=== PATIENT | female | born 1990 | race Caucasian/White ===

== ENCOUNTER 2018-07-05 18:54 | Inpatient (IN) | payer MEDICAID ==
[~2018-07-05] VITALS: Ht 157.5 cm; Wt 77.1 kg
[2018-07-05 18:54] VITALS: BP 149/110
--- NOTE | 2018-07-05 18:56 | NUR ---
PT WC'D TO BED 7
--- NOTE | 2018-07-05 19:14 | NUR ---
Patient being evaluated by physician at bedside.
--- NOTE | 2018-07-05 19:15 | NUR ---
PT C/O NVD SINCE 1400 AFTER EATING LETTUCE, DENIES CP SOB OR OTHER SYMPTOMS. DIAPHORETIC AND SAYS SHE FEELS REALLY WEAK. ABD PAIN 7/10 ALL OVER. BOWEL SOUNDS HYPERACTIVE. HX---NONE
--- NOTE | 2018-07-05 19:17 | NUR ---
MOVED TO ER BED 1
[2018-07-05] MEDS ORDERED: KETOROLAC 30 MG/ML VIAL IVP ONE (19:20)
[2018-07-05] MEDS ORDERED: NACL 0.9% 1,000 ML IV ONE ×2 (19:20→21:35)
[2018-07-05] MEDS ORDERED: ONDANSETRON 4 MG/2 ML VIAL IVP ONE ×2 (19:20→22:10)
--- NOTE | 2018-07-05 19:20 | NUR ---
PT PROVIDED W/ BEDSIDE COMMODE, AND TOILETRIES, PT AMBULATORY EVEN STEADY GAIT, AT BEDSIDE.
[2018-07-05 19:43] LABS: HEMATOCRIT 47.2 % (36-48); HEMOGLOBIN 15.2 g/dL (12.0-16.0); MEAN CORPUSCULAR HEMOGLOBIN 26 pg (27-31); MEAN CORPUSCULAR HGB CONC 32 g/dL (33-37); PLATELET COUNT (AUTO) 383 K/uL (140-450); RED CELL DISTRIBUTION WIDTH 15.6 % (11.6-13.7)
[2018-07-05 19:58] LABS: ALBUMIN 4.9 g/dL (3.4-5.0); CARBON DIOXIDE 17.8 mmol/L (21-32); POTASSIUM 3.8 mmol/L (3.5-5.1); TOTAL BILIRUBIN 0.7 mg/dL (0.0-1.0)
[2018-07-05 20:06] LABS: LYMPHOCYTES % (MANUAL) 4 % (20-46); MONOCYTES % (MANUAL) 3 % (5-12)
[2018-07-05] MEDS ORDERED: LEVOFLOXACIN 750 MG/D5W PREMIX 150 ML IV ONE (20:15)
[2018-07-05] MEDS ORDERED: NACL 0.9% 1,000 ML IV SCH (20:15)
--- NOTE | 2018-07-05 21:08 | NUR ---
IVF/IVPB MEDS GIVEN-NADR AT THIS TIME. STOOL SAMPLES SENT TO LAB
--- NOTE | 2018-07-05 21:26 | NUR ---
PT POSITIONED TO COMFORT IN BED, PROVIDED W/ ICE CHIPS, PT STATES SHE IS UNABLE TO URINATE AT THIS TIME, WILL FOLLOW UP.
--- NOTE | 2018-07-05 21:30 | NUR ---
DR GREER AT BEDSIDE, REEVALUATING PT.
--- NOTE | 2018-07-05 21:37 | NUR ---
PT TO BEDSIDE COMMODE TO PROVIDE URINE SAMPLE
[2018-07-05] MEDS ORDERED: ONDANSETRON 4 MG/2 ML VIAL IM/IVP PRN (21:45)
[2018-07-05] MEDS ORDERED: ZOLPIDEM 5 MG TAB PO PRN (21:45)
[2018-07-05] MEDS ORDERED: LORazepam 0.5 MG TAB PO PRN (21:45)
[2018-07-05] MEDS ORDERED: ACETAMINOPHEN 325 MG TAB PO PRN (21:45)
[2018-07-05] MEDS ORDERED: HYDROcodone/APAP 7.5/325 MG 1 TAB PO PRN (21:45)
[2018-07-05] MEDS ORDERED: DOCUSATE SODIUM 100 MG GELCAP PO PRN (21:45)
[2018-07-05 22:20] VITALS: BP 144/93
--- NOTE | 2018-07-05 22:20 | NUR ---
PT ARRIVED ON UNIT VIA RMAR LIN WITH ER NURSE. PT IN STABLE CONDITION. PT ABLE TO AMBULATE FROM GURNEY TO BED. IV ACCESS IN L FA 22G WITH IVF RUNNING PER MD ORDERS. IV IS PATENT AN INTACT. PT IS AAOX4. PT IS ON RA RESPIRATION ARE EVEN AND UNLABORED. PT SKIN IS INTACT. PT CURRENTLY HAVING NO NAUSEA, VOMITING OR DIARRHEA. PT HAS NO C/O PAIN AT THIS TIME. ORIENTED PT TO ROOM AND USE OF CALL LIGHT. MRSA SWAB COLLECTED. BED IS LOCKED, LOW POSITION WITH SIDE RAILS UP X2. CALL LIGHT IS WITHIN REACH. WILL CONTINUE TO MONITOR PT.
--- NOTE | 2018-07-05 22:25 | NUR ---
Patient will be admitted to care of DR SAPP. Admited to [facility]. Will go to [id number]. Belongings list completed. Report to PRICE WALKER .
[2018-07-05] MEDS: NACL 0.9% 1,000 ML IV SCH (22:30)
--- NOTE | 2018-07-05 22:44 | NUR ---
DR SAMUELS AT BEDSIDE SPEAKING AND ASSESSING PT.
[2018-07-05 23:02] LABS: APPEARANCE,URINE CLEAR (CLEAR); BILIRUBIN,URINE SMALL (NEGATIVE); BLOOD, URINE NEGATIVE (NEGATIVE); COLOR,URINE YELLOW (YELLOW); LEUKOCYTE ESTERASE ,URINE NEGATIVE (NEGATIVE); NITRITE, URINE NEGATIVE (NEGATIVE); PH,URINE 5.5 (5.0-9.0); UGLUCOSE NEGATIVE (NEGATIVE)
[2018-07-05 23:03] LABS: BARBITURATE, URINE NEG. ng/ml (NEG <=200); BENZODIAZEPINE, URINE NEG. ng/mL (NEG <=200); CANNABINOID, URINE POS. ng/mL (NEG <=50); COCAINE, URINE NEG. ng/mL (NEG <=300); OPIATE, URINE NEG. ng/mL (NEG <=2000); PHENCYCLIDINE SCREEN,URINE NEG. ng/mL (NEG <=25)
[2018-07-05 23:04] LABS: PROTHROMBIN TIME 10.4 secs (10.8-13.4)
[2018-07-05 23:17] LABS: FREE T4 (FREE THYROXINE) 1.07 ng/dL (0.76-1.46); MAGNESIUM 1.4 mg/dL (1.8-2.4); PHOSPHORUS 3.6 mg/dL (2.5-4.9); THYROID STIMULATING HORMONE 0.65 uIU/mL (0.34-3.74)
[2018-07-05] MEDS ORDERED: cefTRIAXone 1,000 MG VIAL ONE (23:19)
--- NOTE | 2018-07-05 23:22 | NUR ---
ADMINISTERED SCHEDULED MEDICATION. PT VOMITED 600ML. ZOFRAN GIVEN. PT TOLERATED WELL. WILL CONTINUE TO MONITOR.
[2018-07-06] VITALS: BP 143/87
--- NOTE | 2018-07-06 00:50 | NUR ---
PT C/O ABDOMINAL PAIN, NORCO GIVEN. PT AMBULATED TO BATHROOM. PT HAD DIARRHEA X2. PT NOW BACK IN BED IN BED. NO S/SX OF DISTRESS. WILL CONTINUE TO MONITOR.
--- NOTE | 2018-07-06 03:10 | NUR ---
PT ASLEEP IN BED. NO SIGNS OR SYMPTOMS OF DISTRESS. WILL CONTINUE TO MONITOR.
--- NOTE | 2018-07-06 04:43 | NUR ---
ADMINISTERED SCHEDULED MEDICATION. PT TOLERATING WELL. NO SIGNS OR SYMPTOMS OF DISTRESS. WILL CONTINUE TO MONITOR.
[2018-07-06] MEDS ORDERED: metroNIDAZOLE 500 MG/NS PREMIX 100 ML IV SCH (05:00)
--- NOTE | 2018-07-06 07:10 | NUR ---
ENDORSED PT TO DAY SHIFT NURSE FOR CONTINUITY OF CARE. PT IN STABLE CONDITION.
[2018-07-06 08:00] VITALS: BP 142/89
[2018-07-06] MEDS ORDERED: MAG SULF 2000 MG/WATER PREMIX 100 ML IV SCH (08:00)
--- NOTE | 2018-07-06 08:01 | NUR ---
PATIENT WAS AWAKE, ALERT. RESPIRATION EVEN, UNLABOR ON ROOM AIR. SKIN DRY AND WARM. IV PATENT AND INTACT. DENIED PAIN, N/V AT THIS TIME. PLAN OF CARE WAS DISCUSSED WITH PATIENT. BED AT LOW POSITION, SIDE RAILS UP. CALL LIGHT WITHIN REACH
[2018-07-06 08:12] LABS: HEMATOCRIT 38.3 % (36-48); HEMOGLOBIN 12.4 g/dL (12.0-16.0); MEAN CORPUSCULAR HEMOGLOBIN 26 pg (27-31); MEAN CORPUSCULAR HGB CONC 32 g/dL (33-37); MEAN CORPUSCULAR VOLUME 80.3 fL (80-94); PLATELET COUNT (AUTO) 254 K/uL (140-450); RED BLOOD CELL COUNT(AUTO) 4.77 MIL/uL (4.20-5.40); RED CELL DISTRIBUTION WIDTH 15.9 % (11.6-13.7); WHITE BLOOD COUNT (AUTO) 6.7 K/uL (4.8-10.8)
[2018-07-06] MEDS: NACL 0.9% 1,000 ML IV SCH (08:41)
[2018-07-06 08:57] LABS: ANION GAP 14.8 (8-16); CARBON DIOXIDE 22.8 mmol/L (21-32); CREATININE 0.7 mg/dL (0.6-1.3); MAGNESIUM 1.5 mg/dL (1.8-2.4); PHOSPHORUS 5.1 mg/dL (2.5-4.9); POTASSIUM 3.6 mmol/L (3.5-5.1)
[2018-07-06 08:58] LABS: BASOPHILS % (MANUAL) 0 % (0-2); EOSINOPHILS % (MANUAL) 0 % (0-4); LYMPHOCYTES % (MANUAL) 10 % (20-46); MONOCYTES % (MANUAL) 7 % (5-12)
[2018-07-06] MEDS ORDERED: LACTOBACILLUS RHAMNOSUS GG 1 EACH CAP PO SCH (09:00)
[2018-07-06 09:10] LABS: CHOL/HDL RATIO 2.7 (1-4.5)
[2018-07-06] MEDS ORDERED: LACT10CA PO (10:04)
[2018-07-06] MEDS ORDERED: ONDA4TAB PO (10:04)
[2018-07-06] MEDS ORDERED: AMOX-1000 PO (10:04)
--- NOTE | 2018-07-06 10:22 | NUR ---
PATIENT REQUESTED TO LEAVE AMA, STATED THAT "I DON'T FEEL LIKE I NEED TO STAY HERE ANY LONGER". DR. IVEY WAS MADE AWARE. RISKS OF LEAVING AMA WAS EXPLAINED TO PATIENT. PATIENT VERBALIZED UNDERSTANDING. FAMILY IS AT BEDSIDE Addendum: 07/06/18 at 1035 by Kristine Felipe RN DR. IVEY WAS AT BEDSIDE. AMA FORM WAS SIGNED BY PATIENT.
--- NOTE | 2018-07-06 10:25 | NUR ---
PRESCRIPTION WAS GIVEN AND EXPLAINED TO PATIENT. PATIENT VERBALIZED UNDERSTANDING
--- NOTE | 2018-07-06 10:30 | NUR ---
IV WAS REMOVED, CATHETER INTACT. NO ACTIVE BLEEDING SEEN. PATIENT TOLERATED WELL
[2018-07-08 06:25] LABS: T4 (THYROXINE) 6.8 ug/dL (4.5-12.0)
== END 2018-07-06 11:12 | disposition left against medical advice (07) | DRG 720 ==
LOC: MED 18:54 → MTU 21:46
PROVIDERS: ADMIT General Practice; ATTEND General Practice
DX: A41.9 Sepsis, unspecified organism (principal); N17.0 Acute kidney failure with tubular necrosis; I47.1 Supraventricular tachycardia; A04.9 Bacterial intestinal infection, unspecified; K52.9 Noninfective gastroenteritis and colitis, unspecified; E86.0 Dehydration; E83.39 Other disorders of phosphorus metabolism; E83.42 Hypomagnesemia; E66.9 Obesity, unspecified; Z68.31 Body mass index [BMI] 31.0-31.9, adult; F12.90 Cannabis use, unspecified, uncomplicated; Z79.899 Other long term (current) drug therapy
CPT/HCPCS: 36415; 71045; 80048; 80053; 80305; 81003; 82150; 83036; 83605; 83690; 83735; 83880; 84100; 84436; 84439; 84443; 84479; 84484; 85025; 85610; 85730; 87040; 87045; 87070; 87081; 87086; 87177; 89055; 93005; 96361; 96365; 96375; 96376; 99285; J0696; J1885; J1956; J2405; J3475; J3490; J7060; Q0092